=== PATIENT | female | born 1975 | race Caucasian/White ===

== ENCOUNTER 2017-03-17 15:31 | Emergency (ER) ==
[2017-03-17 15:41] VITALS: BP 155/105; TEMP 98.7; BMI 21.9
--- NOTE | 2017-03-17 18:02 | CT ---
EXAM: Noncontrast CT of the abdomen and pelvis. HISTORY: Left lower quadrant pain. Left flank pain. COMPARISON: 09/04/2011 TECHNIQUE: Contiguous axial images at 3 mm intervals were obtained from lung bases through the pelvi s. No contrast was given. Coronal reformats were reviewed. FINDINGS: The study is limited without contrast. There is also a significant lack of intra-abdominal fat which limits evaluation. CHEST: The lung bases show no lobar consolidation or effusion. The heart size is within normal limi ts. ABDOMEN: Evaluation of the soft tissue organs is limited without contrast. LIVER: Noncontrast images of the liver show no solid mass lesion or intrahepatic ductal dilatation. BILIARY: The gallbladder is normally distended. No gallstones are noted. No pericholecystic fluid or inflammation. The common bile duct is normal. SPLEEN: The spleen is unremarkable. PANCREAS: The pancreas shows no mass lesion or peripancreatic inflammation. ADRENAL GLANDS: The adrenal glands are normal. RENAL: The kidneys show no hydronephrosis or nephrolithiasis. There are no obstructing ureteral sto lorenza. No solid mass lesions are identified. RETROPERITONEUM: The aorta is unopacified. No aneurysm is identified. No significant aortic calcif ications are seen. There is no retroperitoneal or mesenteric adenopathy. BOWEL: The bowel is unopacified. There is no obstruction or inflammatory change. There is no free fluid or free air. No significant inflammatory changes are seen. There are oval densities which ap pear to be and bowel likely due to medications. Correlate with history. The appendix is not identif ied on the study. There is no fluid or inflammation in the right lower quadrant. There is no eviden ce of diverticulosis or evidence of acute diverticulitis. PELVIS: BLADDER: The bladder is not well distended which limits evaluation. There are no definite stones in the bladder.. GENITOURINARY STRUCTURES: Uterus and ovaries are not seen. Correlate with history. OSSEOUS STRUCTURES: The osseous structures are normal for age. There are postoperative changes at L 4-5 and L5 S1. IMPRESSION 1. No acute intra-abdominal abnormality. Limited study without contrast. No obstructing ureteral s tones. 2. The appendix is not identified. 3. Consider repeat study with IV and water-soluble enteric contrast to better evaluate for source of pain.
--- NOTE | 2017-03-17 18:12 | ED.PDOC ---
General ED Provider: Dr. INDIGO KAUR Chief Complaint: Abdominal Pain Stated Complaint: ABDOMINAL PAIN LEFT LOWER Time Seen by Physician: 15:34 (SEEN WITH STAFF AT ALL TIMES ) Mode of Arrival: Walk-In Information Source: Patient Exam Limitations: No limitations Nursing and Triage Documentation Reviewed and Agree: Yes Reviewed sepsis parameters & appropriate labs ordered?: Yes System Inflammatory Response Syndrome: Not Applicable Sepsis Protocol: For patient's 13 years and over: Temp is 96.8 and below OR 101 and greater Pulse >90 BPM Resp >20/minute Acutely Altered Mental Status Are patient's symptoms suggestive of a new infection, such as: -Pneumonia -Skin, Soft Tissue -Endocarditis -UTI -Bone, Joint Infection -Implantable Device -Acute Abdominal Infection -Wound Infection -Meningitis -Blood Stream Catheter Infection -Unknown GI Complaint Exam - Abdominal Pain Complaint/Exam Onset: Gradual Duration: 1 DAY Symptoms Are: Still present Timing: Intermittent Initial Severity: Moderate Current Severity: Moderate Location of Pain: LLQ Radiates To: Reports: LLQ Character: Reports: Aching Aggravating: Reports: Movement Alleviating: Reports: Rest, Spontaneous resolution. Denies: Antacids, Vomiting , Bowel movement Associated Signs and Symptoms: Reports: Back pain (LEFT). Denies: Diaphoresis, Fever, Cough, Chest pain, Dizziness, Constipation, Blood in stool, Dysuria, Urinary frequency, Decreased urine output, Decreased appetite, Vaginal bleeding , Vaginal discharge, Nausea, Vomiting, Diarrhea, Sore throat, Decreased activity AAA Risk Factors: Reports: Hypertension Cardiac Risk Factors: Reports: Hypertension Ectopic Risk Factors: Reports: None Ovarian Torsion Risk Factors: Reports: None Surgical Obstruction Risk Factors: Reports: None Related Surgical History: Reports: None Patient Rh Status: Unknown Abdominal Findings: Present: None Differential Diagnoses: Appendicitis, Bowel Obstruction, Constipation, Diverticulitis, Gastroenteritis, Hepatitis, Pancreatitis Review of Systems - Review Of Systems Constitutional: Reports: No symptoms Eyes: Reports: No symptoms Ears, Nose, Mouth, Throat: Reports: No symptoms Respiratory: Reports: No symptoms Cardiac: Reports: No symptoms GI: Reports: Abdominal pain : Reports: No symptoms Musculoskeletal: Reports: No symptoms Skin: Reports: No symptoms Neurological: Reports: No symptoms Endocrine: Reports: No symptoms Hematologic/Lymphatic: Reports: No symptoms All Other Systems: Reviewed and Negative Past Medical History - Past Medical History Previously Healthy: Yes Endocrine: Reports: None Cardiovascular: Reports: Hypertension Respiratory: Reports: None Hematological: Reports: None Gastrointestinal: Reports: None Genitourinary: Reports: None Neuro/Psych: Reports: None Musculoskeletal: Reports: None Cancer: Reports: None Last Menstrual Period: hysterectomy - Surgical History General Surgical History: Reports: None - Family History Family History: Reports: None - Social History Smoking Status: Current every day smoker, Light tobacco smoker Hx Substance Use: No Alcohol Screening: None Physical Exam - Physical Exam Appearance: Well-appearing, No pain distress, Well-nourished Eyes: SUZAN, EOMI, Conjunctiva clear ENT: Ears normal, Nose normal, Oropharynx normal Respiratory: Airway patent, Breath sounds clear, Breath sounds equal, Respirations nonlabored Cardiovascular: RRR, Pulses normal, No rub, No murmur GI/: Soft, Nontender, No masses, Bowel sounds normal, No Organomegaly Musculoskeletal: Normal strength, ROM intact, No edema, No calf tenderness Skin: Warm, Dry, Normal color Neurological: Sensation intact, Motor intact, Reflexes intact, Cranial nerves intact, Alert, Oriented Psychiatric: Affect appropriate, Mood appropriate Interpretation - Radiology Interpretation Radiology Interpretation By: Radiologist Radiology Results: No acute changes (BUT RECOMMENDED CT WITH IV CONTRAST) Critical Care Note - Critical Care Note Total Time (mins): 0 Course - Course Hematology/Chemistry: 03/17/17 17:33 Orders, Labs, Meds: Lab Review 03/17/17 03/17/17 03/17/17 16:37 16:37 17:33 WBC 4.85 RBC 4.82 Hgb 14.6 Hct 42.2 MCV 87.6 MCH 30.3 MCHC 34.6 RDW Coeff of Jessa 11.9 Plt Count 175 Immature Gran % (Auto) 0.0 Neut % (Auto) 74.7 Lymph % (Auto) 10.5 [place] % (Auto) 10.9 H Eos % (Auto) 3.1 Baso % (Auto) 0.8 Immature Gran # (Auto) 0.0 Neut # 3.6 Lymph # 0.5 L [place] # 0.5 Eos # 0.2 Baso # 0.0 Urine Color Dark Urine Clarity Clear Urine pH 6.0 Ur Specific [place] >=1.030 Urine Protein 2+ Urine Glucose (UA) Negative Urine Ketones Negative Urine Blood Negative Urine Nitrite Negative Urine Bilirubin 1+ Urine Urobilinogen 1.0 Ur Leukocyte Esterase Negative Urine Microscopic RBC 2-5 Urine Microscopic WBC 5-10 Ur Squamous Epith Cells 20-30 Urine Bacteria 1+ Urine Mucus 1+ Urine Test Negative Orders Category Date Time Status NPO REMINDER: IMAGING ONCE CARE 03/17/17 18:10 Ordered ED IV/MEDIPORT/POWERPORT .ONCE EMERGENCY 03/17/17 18:10 Ordered AMYLASE Stat LAB 03/17/17 17:33 Received CBC W/ AUTO DIFF Stat LAB 03/17/17 17:33 Completed COMPREHENSIVE METABOLIC PANEL Stat LAB 03/17/17 17:33 Received LIPASE Stat LAB 03/17/17 17:33 Received MOLECULAR FLU A/B Stat LAB 03/17/17 17:33 Received MOLECULAR GROUP A STREP Stat LAB 03/17/17 17:33 Completed URINALYSIS C & S IF INDICATED Stat LAB 03/17/17 16:37 Completed URINE CULTURE Stat LAB 03/17/17 16:37 Received URINE Stat LAB 03/17/17 16:37 Completed 0.9 % Sodium Chloride [Saline Flush] MEDS 03/17/17 18:10 Ordered 1 syr IVF PRN PRN CT ABD/PEL WO RENAL STONE PROT Stat RADS 03/17/17 17:[address] ABDOMEN/PELVIS W CONTRAST Stat RADS 03/17/17 18:09 Ordered Medications Generic Name Dose Route Start Last Admin Trade Name Freq PRN Reason Stop Dose Admin Sodium Chloride 1 syr 03/17/17 18:10 Saline Flush IVF PRN PRN To flush IV Vital Signs: Temp Pulse Resp BP Pulse Ox 03/17/17 15:31 98.7 F 100 H 20 155/105 H 94 L Departure - Departure Time of Disposition: 19:30 Disposition: HOME SELF-CARE Discharge Problem: Abdominal pain Instructions: Abdominal Pain (ED) Condition: Good Pt referred to PMD for follow-up: Yes Additional Instructions: Please call your Family Physician as soon as possible to schedule a follow-up appointment. Prescriptions: Hydrocodone/Acetaminophen [[place] 10-325 Tablet] 1 each PO Q8HR #7 tablet Allergies/Adverse Reactions: Allergies codeine Allergy (Unverified 10/28/13 10:16) Home Medications: Ambulatory Orders Ranitidine HCl [Zantac] 150 mg PO BID 10/28/13 Hydrocodone/Acetaminophen [[place] 10-325 Tablet] 1 each PO Q8HR #7 tablet Disposition Discussed With: Patient
--- NOTE | 2017-03-17 19:08 | CT ---
EXAM: CT abdomen pelvis with intravenous contrast 03/17/2017. Sagittal and coronal reformatted imag es obtained HISTORY: Abdominal pain COMPARISON: 03/17/2017 FINDINGS: The liver and gallbladder show no acute process. The adrenal glands and kidneys show no acute abnormality. The spleen and pancreas show no acute process. There is no bowel obstruction. The appendix is not definitively identified. No specific secondary s igns of appendicitis. Partially limited examination due to lack of oral contrast. There is no free air or free fluid. Delayed images show symmetric contrast excretion from the kidneys. Postoperative changes at L4-S1. No acute osseous abnormality. Left ovarian cyst on coronal series image 46 measures approximately 3.3 x 2.5 cm diameter. IMPRESSION: 1. No urinary or bowel obstruction. 2. The appendix is not definitively identified. There are no specific secondary signs of appendicit is. 3. Postoperative changes of the lumbar spine. 4. Left ovarian cyst. 5. No acute inflammatory process identified within the abdomen or pelvis.
== END 2017-03-17 19:15 | disposition home or self-care (01) ==
LOC: ED 15:31
DX: R10.32 Left lower quadrant pain (principal); I10 Essential (primary) hypertension; F17.210 Nicotine dependence, cigarettes, uncomplicated
CPT/HCPCS: 36415; 74176; 80053; 81001; 81025; 82150; 83690; 85025; 87086; 87502; 87651; 99284